=== PATIENT | female | born 1930 | race Caucasian/White ===

== ENCOUNTER → 2017-06-01 | Outpatient (CLI) | payer MEDICARE ==
--- NOTE | 2017-06-01 11:44 | Diagnostic Imaging Report ---
PROCEDURE: CT right lower extremity without contrast. TECHNIQUE: Axially acquired CT was obtained through the right lower extremity without intravenous contrast. Coronal and sagittal reformations were also performed. INDICATION: Distal right femoral fracture followup. FINDINGS: There is internal fixation with plate and screws to a fracture in the distal right femur that demonstrates no osseous bridging with mild displacement seen along the medial cortex of the distal femoral shaft. The fracture extends obliquely into the lateral femoral condyle with mild comminution suggested distally. The most distal aspect of the bone just above the prosthesis and within the central aspect of the femoral prosthesis is not evaluated on this exam due to extensive beam hardening artifacts from the prosthesis itself. The prosthesis appears to be grossly intact and in a grossly intact position as well. The soft tissues demonstrate suggestion of a seroma along the lateral aspect of the distal thigh measuring 2.8 x 2.5 cm within the deep aspect of the subcutaneous fat. This does not appear to extend into the muscular layer although evaluation is limited by the artifact. IMPRESSION: There is an oblique fracture through the distal femur with no signs of healing seen. It demonstrates slight displacement of the medial cortex of the femur and has suggestion of a comminuted component distally into the lateral femoral condyle. The portion of the bone at the level of the femoral prosthesis is completely obscured by dense beam hardening artifacts. Dictated by: Dictated on workstation # [id number]
== END ==
LOC: RAD 10:31
PROVIDERS: ATTEND Orthopaedic Surgery
DX: S72.331D Displaced oblique fracture of shaft of right femur, subsequent encounter for closed fracture with routine healing (principal); X58.XXXA Exposure to other specified factors, initial encounter; Y99.8 Other external cause status
CPT/HCPCS: 73700

== ENCOUNTER → 2020-08-25 | Outpatient (CLI) | payer OTHER, MEDICARE | LOC: GIR 08:16 | PROVIDERS: ATTEND Family Medicine | DX: Z20.822 Contact with and (suspected) exposure to COVID-19 (principal) | CPT/HCPCS: 84145; 87635 ==

== ENCOUNTER → 2021-01-15 | Outpatient (CLI) | payer MEDICARE ==
[2021-01-15 11:05] LABS: ABSOLUTE RETIC # 43 10e9/uL (24-90); RETICULOCYTE % 1.27 % (0.50-2.40)
[2021-01-15 11:10] LABS: BAND NEUTROPHILS 1 %; BASOPHILS % (MANUAL) 1 %; EOSINOPHILS % (MANUAL) 6 %; LYMPHOCYTES % (MANUAL) 20 %; MONOCYTES % (MANUAL) 5 %; NEUTROPHILS % (MANUAL) 67 %; RBC MORPH NORMAL
== END ==
LOC: LABNPT 10:35
PROVIDERS: ATTEND Family Medicine
DX: D70.9 Neutropenia, unspecified (principal)
CPT/HCPCS: 85007; 85045; 85055